=== PATIENT | female | born 1950 | race Caucasian/White ===

== ENCOUNTER 2024-08-16 06:20 | Day surgery (SDC) | payer MEDICARE, BC, SELFPAY ==
[2024-08-16 08:00] LABS: Glucose - Point of Care 257 mg/dl (70-99)
== END 2024-08-16 09:23 | disposition home or self-care (01) ==
LOC: GI 06:20
PROVIDERS: ATTENDING PHYSICIAN Internal Medicine Gastroenterology
DX: R12 Heartburn (principal); K44.9 Diaphragmatic hernia without obstruction or gangrene; K31.7 Polyp of stomach and duodenum; K31.89 Other diseases of stomach and duodenum; K31.A0 Gastric intestinal metaplasia, unspecified; K29.50 Unspecified chronic gastritis without bleeding; K31.A13 Gastric intestinal metaplasia without dysplasia, involving the fundus
CPT/HCPCS: 43239; 88305; 82962; 88342